=== PATIENT | male | born 1935 ===

== ENCOUNTER → 2016-08-27 | Outpatient (CLI) | payer MEDICARE, OTHER ==
[~2016-08-27] MED LIST: ACCUPRIL PO; ACCUPRIL10 MG PO; ALDACTONE25 MG PO; ALPRAZOLAM PO; ASPIRIN PO; ASPIRIN81 M2 PO; ASPIRIN81 MG PO; ATENOLOL PO; ATENOLOL25 MG PO; ATIVAN0.5 M1 PO; ATIVAN2 MG PO; CARDURA PO; CENTRUM PO; COREG3.125 MG PO; CRESTOR PO; CRESTOR10 MG PO; ELIQUIS5 MG PO; FLOMAX0.4 M1 PO; FUROSEMIDE80 MG PO; GABAPENTIN300 M2 PO; HYDRALAZINE HCL25 MG PO; HYDROCODON-ACE1 EAC5 PO; IMDUR PO; IMDUR-ER60 M1 PO; K-DUR10 MEQ PO; K-DUR20 ME2 PO; KCL PO; LASIX20 MG PO; LASIX80 MG PO; LIPITOR PO; LORAZEPAM1 MG PO; LORTAB 10-3251 EACH PO; LORTAB 7.5-5001 TAB PO; LYRICA PO; MULTI VITAMIN1 EACH PO; MULTI-DAY1 TAB PO; MULTIVITAMINS1 EAC3 PO; NEURONTIN100 MG PO; NITROGLYGERIN0.4 MG SL; NITROSTAT0.4 MG SL; OMEPRAZOLE40 M1 PO; PERCOCET 7.5-31 EACH PO; PERCOCET 7.5/321 TAB PO; POTASSIUM CHLO10 MEQ PO; PRADAXA150 MG PO; PREDNISONE5 M1 PO; PROTONIX PO; ROXANOL W/DR20 MG/ML PO; ULTRAM ER100 MG PO; ULTRAM PO; ZOLOFT50 MG PO
== END | disposition home or self-care (01) ==
LOC: CLAB 06:18
DX: R19.7 Diarrhea, unspecified (principal)
CPT/HCPCS: 87045; 87427; 87493; 87899

== ENCOUNTER → 2016-11-02 | Day surgery (SDC) | payer MEDICARE, OTHER ==
--- NOTE | ~2016-11-02 | OR ---
Unit #: [id number] #: [id number] Patient: MICHELLE REYNOLDS [id number] [address] [address] [id number] O MR#: [id number] NAME: MICHELLE REYNOLDS ROOM: Date of Procedure: 11/02/2016 Admission Date: 11/02/2016 Surgeon: Vladimir Mcclure M.D. : 1935 Attending Physician: Vladimir Mcclure M.D. Primary Care Physician: Fortunato Gamboa M.D. PROCEDURE OPERATIVE NOTE PREOPERATIVE DIAGNOSES 1. Back pain. 2. Radiculopathy. 3. Herniated nucleus pulposus. 4. Spinal stenosis. POSTOPERATIVE DIAGNOSES 1. Back pain. 2. Radiculopathy. 3. Herniated nucleus pulposus. 4. Spinal stenosis. PROCEDURE PERFORMED Lumbar epidural steroid injection with intravenous sedation and fluoroscopic guidance for needle localization. HISTORY The patient is an 81-year-old male with return of back and right lower extremity pain, right-sided low back greater than left, due to known right-sided disc herniations at L2-3, 3-4, and 4-5, left greater than right bulge at L5-S1. Patient is not a surgical candidate. He has been treated with medications and p.r.n. epidural steroid injections. Last injections were completed about three months ago and he did well until just the last few weeks. Plan is to repeat an injection based on histopathology and symptom complex. PROCEDURE The patient was placed in a seated position. Standard monitors were applied. One milligram of Versed was given for sedation and anxiolysis which were adequate. Vital signs remained stable. A sterile prep and drape down to the lumbar area was performed. The skin at the L4 level was localized with 1% lidocaine. An 18-gauge Travtar needle was then advanced via loss of resistance technique under fluoroscopic guidance in toward the epidural space. After confirming proper positioning with fluoroscopy and radiographic contrast, 80 mg of Depo Medrol and 6 mL of 0.125% bupivacaine were deposited. Patient tolerated the procedure well and was discharged to the recovery room in stable condition. Dictated by... Unit #: [id number] #: [id number] Patient: MICHELLE REYNOLDS Vladimir Mcclure M.D. [facility]/ TD: 11/02/2016 09:24 JOB #: [id number] PROCEDURE OPERATIVE NOTE Page 1 of 1 X Vladimir Mcclure MD X PROCEDURE OPERATIVE NOTE
== END | disposition home or self-care (01) ==
LOC: CCSC 07:40
DX: M51.17 Intervertebral disc disorders with radiculopathy, lumbosacral region (principal); M48.06 Spinal stenosis, lumbar region
CPT/HCPCS: J1040; J2250

== ENCOUNTER 2016-11-06 16:50 | Emergency (ER) | payer MEDICARE, OTHER ==
--- NOTE | ~2016-11-06 | CR210 ---
[facility] A Service of [facility] RADIOLOGY TEXT RESULTS PATIENT: MICHELLE REYNOLDS LOCATION: [facility] : 33 UNIT #: [id number] AGE: [address]: Travis Mcfadden MD SEX: M ORDER DR: [id number] [facility] [address] [place], [place] [address] [id number] E MR#: [id number] Acc #: [id number] NAME: MICHELLE REYNOLDS : 1935 SEX: M STUDY DATE/TIME: 11/06/2016 19:19 UNIT: [facility] ROOM: STUDY DESCRIPTION: CR Ribs Uni 2 View W PA Ch Lt Attending Physician: Travis Mcfadden M.D. Ordering Physician: Travis Mcfadden M.D. Primary Care Physician: Fortunato Gamboa M.D. MEDICAL IMAGING REPORT This report is preliminary unless electronic signature is present EXAM PA chest with left rib series, 11/06/2016 HISTORY 81-year-old male with left-sided rib pain for 1 week status post fall. COMPARISON CT chest 05/19/2016 FINDINGS Frontal chest and 3 views of the left ribs are performed. 4 total images. No displaced left-sided rib fractures. No other acute bony abnormality. Low lung volumes. Bibasilar atelectasis. Small left pleural effusion. No pneumothorax. Mild cardiomegaly. Mediastinum and pulmonary vasculature unremarkable. Median sternotomy wires. IMPRESSION 1. No evidence of a displaced left-sided rib fracture. No other acute bony abnormality. 2. Low lung volumes with bibasilar atelectasis and small left pleural effusion. 3. CABG. Dictated by... Unruly Martínez M.D. THIS IS AN ELECTRONICALLY VERIFIED REPORT Unruly Martínez M.D. at 11/07/2016 9:07 AM JAY/guera TD: 11/06/2016 23:24 [facility] A Service of [facility] RADIOLOGY TEXT RESULTS PATIENT: MICHEL[facility] REYNOLDS [id number] [birth year] UNIT #: [id number] AGE: [address]: Travis Mcfadden MD SEX: M ORDER DR: JOB #: [id number] MEDICAL IMAGING REPORT Page 1 of 1 COPY
[~2016-11-06 16:50] MED LIST changes: -ATIVAN2 MG PO; -CRESTOR PO; -FUROSEMIDE80 MG PO; -GABAPENTIN300 M2 PO; -KCL PO; -MULTIVITAMINS1 EAC3 PO; -PREDNISONE5 M1 PO; -ROXANOL W/DR20 MG/ML PO
[2016-11-06] MEDS ORDERED: ACCUPRIL10 MG PO (18:15)
[2016-11-06] MEDS ORDERED: COREG3.125 MG PO (18:15)
[2016-11-06] MEDS ORDERED: ELIQUIS5 MG PO (18:15)
[2016-11-06] MEDS ORDERED: FUROSEMIDE80 MG PO (18:15)
[2016-11-06] MEDS ORDERED: CRESTOR PO (18:15)
[2016-11-06] MEDS ORDERED: GABAPENTIN300 M2 PO (18:16)
[2016-11-06] MEDS ORDERED: MULTIVITAMINS1 EAC3 PO (18:17)
[2016-11-06] MEDS ORDERED: LORTAB 10-3251 EACH PO (18:17)
[2016-11-06] MEDS ORDERED: KCL PO (18:18)
[2016-11-06] MEDS ORDERED: FLOMAX0.4 M1 PO (18:19)
[2016-11-06] MEDS ORDERED: ZOLOFT50 MG PO (18:19)
[2016-11-06] MEDS ORDERED: PREDNISONE5 M1 PO (18:20)
[2016-11-06] MEDS ORDERED: NITROGLYGERIN0.4 MG SL (18:20)
== END 2016-11-06 20:07 | disposition home or self-care (01) ==
LOC: CED 16:50
DX: S20.212A Contusion of left front wall of thorax, initial encounter (principal); I11.0 Hypertensive heart disease with heart failure; I50.9 Heart failure, unspecified; Y92.89 Other specified places as the place of occurrence of the external cause; F32.9 Major depressive disorder, single episode, unspecified; E78.00 Pure hypercholesterolemia, unspecified; Z79.899 Other long term (current) drug therapy; W01.0XXA Fall on same level from slipping, tripping and stumbling without subsequent striking against object, initial encounter
CPT/HCPCS: 71101; 99283

== ENCOUNTER → 2016-11-09 | Day surgery (SDC) | payer MEDICARE, OTHER ==
[~2016-11-09] MED LIST changes: +ATIVAN2 MG PO; +CRESTOR PO; +FUROSEMIDE80 MG PO; +GABAPENTIN300 M2 PO; +KCL PO; +MULTIVITAMINS1 EAC3 PO; +PREDNISONE5 M1 PO; +ROXANOL W/DR20 MG/ML PO
--- NOTE | ~2016-11-09 | OR ---
Unit #: [id number] #: [id number] Patient: MICHELLE REYNOLDS [id number] [address] [place], [place] [address] [id number] O MR#: [id number] NAME: MICHELLE REYNOLDS ROOM: Date of Procedure: 11/09/2016 Admission Date: 11/09/2016 Surgeon: Vladimir Mcclure M.D. : 1935 Attending Physician: Vladimir Mcclure M.D. Primary Care Physician: Fortunato Gamboa M.D. OPERATIVE REPORT PREOPERATIVE DIAGNOSES Back pain, radiculopathy, lumbar disk herniation, degenerative disc and spine disease. POSTOPERATIVE DIAGNOSES Back pain, radiculopathy, lumbar disk herniation, degenerative disc and spine disease. PROCEDURE PERFORMED Lumbar epidural steroid injection with intravenous sedation and fluoroscopic guidance for needle localization. INDICATIONS FOR PROCEDURE The patient is an 81-year-old male with worsening back and right lower extremity pain due to right-sided L2-3 and L3-4 disc herniations. There were degenerative changes also at L4-L5 and L5-S1 levels. He is not a surgical candidate. He was treated medically with p.r.n. epidural steroid injections when his symptoms flare. He had injection in last week, which settle his about half his right low back and lower extremity pain. He is not yet at the baseline, so we are able to get with injections. He also had a fall during the week, he hit the side of the tub with the left side of his chest. He went to the ER for workup, but no fracture, he was just sore to the left side of his thorax. DESCRIPTION OF PROCEDURE The patient was placed in a seated position. Standard monitors were applied. 1 mg of Versed was given for sedation and anxiolysis, which were adequate. Vital signs remained stable. Sterile prep and drape then of the lumbar area was performed. The skin at the L3-L4 level was localized with 1% lidocaine. An 18-gauge BuyerMLStead needle was then advanced via loss of resistance technique and fluoroscopic guidance into the epidural space. After confirming proper positioning with fluoroscopy and radiographic contrast, 80 mg Depo-Medrol and 6 mL of 0.125% bupivacaine were deposited. The patient tolerated the procedure well and was discharged to the recovery room in stable condition. Dictated by... Vladimir Mcclure M.D. [facility]/adeola Unit #: [id number] #: [id number] Patient: MICHELLE REYNOLDS TD: 11/09/2016 10:49 JOB #: [id number] OPERATIVE REPORT Page 1 of 1 X Vladimir Mcclure MD X PROCEDURE OPERATIVE NOTE
== END | disposition home or self-care (01) ==
LOC: CCSC 07:35
DX: M51.16 Intervertebral disc disorders with radiculopathy, lumbar region (principal); M51.17 Intervertebral disc disorders with radiculopathy, lumbosacral region
CPT/HCPCS: J1040; J2250

== ENCOUNTER → 2016-11-29 | Outpatient (CLI) | payer MEDICARE, OTHER ==
[2016-11-29 17:01] LABS: BUN/CREATININE RATIO 26.25; CALCIUM SERUM 8.6 mg/dL (8.4-10.2); CREATININE SERUM 0.8 mg/dL (0.6-1.4); GLOM FILT RATE Estimated 82.6 mL/min (>60); POTASSIUM 3.9 mmol/L (3.5-5.1)
== END | disposition home or self-care (01) ==
LOC: CLAB 15:18
PROVIDERS: Internal Medicine Cardiovascular Disease
DX: I50.9 Heart failure, unspecified (principal)
CPT/HCPCS: 36415; 80048

== ENCOUNTER → 2016-12-07 | Outpatient (CLI) | payer MEDICARE, OTHER ==
--- NOTE | ~2016-12-07 | CT55 ---
[facility] A Service of [facility] RADIOLOGY TEXT RESULTS PATIENT: MICHELLE REYNOLDS LOCATION: [facility] : 33 UNIT #: [id number] AGE: [address]: Fortunato Gamboa MD SEX: M ORDER DR: [id number] [facility] [address] [place], [place] [address] [id number] O MR#: [id number] Acc #: [id number] NAME: MICHELLE REYNOLDS : 1935 SEX: M STUDY DATE/TIME: 12/07/2016 15:57 UNIT: [facility] ROOM: STUDY DESCRIPTION: CT Chest W Con Attending Physician: Fortunato Gamboa M.D. Referring Physician: Fortunato Gamboa M.D. Ordering Physician: Fortunato Gamboa M.D. Primary Care Physician: Fortunato Gamboa M.D. MEDICAL IMAGING REPORT This report is preliminary unless electronic signature is present EXAM CT chest. INDICATIONS Abnormal chest CT. Shortness of air for 6 months. Asbestos exposure. TECHNIQUE CT of the thorax with IV contrast (100 mL Isovue-370 IV contrast). Coronal and sagittal reconstructions were obtained. This CT exam was performed with one or more of the following radiation dose reduction techniques: automatic exposure control, adjustment of mA and/or kV according to patient size, and iterative reconstruction. COMPARISON CT chest dated 05/19/2016, and concurrent CT abdomen and pelvis 12/07/2016. FINDINGS The heart is enlarged. Patient is status post CABG. There is borderline enlargement of the mid ascending thoracic aorta measuring 3.9 cm. No pathologically enlarged mediastinal or hilar lymph nodes. 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 There is mild emphysema. No focal consolidation. There is elevation of the right hemidiaphragm which results in some atelectasis in the right lung. Please refer to separately dictated report for details on the abdomen. No acute osseous abnormalities. There is asymmetric gynecomastia in the left chest. There is an acute T6 compression fracture resulting in 50% anterior height loss and 25% posterior height loss. No retropulsion. There is a subacute STS. [facility] A Service of [facility] RADIOLOGY TEXT RESULTS PATIENT: MICHELLE REYNOLDS LOCATION: [facility] : 33 UNIT #: [id number] AGE: [address]: Fortunato Gamboa MD SEX: M ORDER DR: to chronic compression fracture of the T12 vertebra resulting in 50% anterior height loss. IMPRESSION 1. Emphysema. 2. 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 3. Elevated right hemidiaphragm. 4. Acute-appearing compression fracture of T6 with subacute to chronic compression fracture of T12. Dictated by... Mohsen Flores M.D. THIS IS AN ELECTRONICALLY VERIFIED REPORT Mohsen Flores M.D. at 12/08/2016 7:57 AM MAC/brittany TD: 12/07/2016 22:18 JOB #: [id number] MEDICAL IMAGING REPORT Page 1 of 1 COPY
--- NOTE | ~2016-12-07 | CT2 ---
[facility] A Service of [facility] RADIOLOGY TEXT RESULTS PATIENT: MICHELLE REYNOLDS LOCATION: [facility] : 33 UNIT #: [id number] AGE: [address]: Fortunato Gamboa MD SEX: M ORDER DR: [id number] [facility] [address] [place], [place] [address] [id number] O MR#: [id number] Acc #: [id number] NAME: MICHELLE REYNOLDS : 1935 SEX: M STUDY DATE/TIME: 12/07/2016 15:57 UNIT: [facility] ROOM: STUDY DESCRIPTION: CT Abd and Pelv W Cont Attending Physician: Fortunato Gamboa M.D. Referring Physician: Fortunato Gamboa M.D. Ordering Physician: Fortunato Gamboa M.D. Primary Care Physician: Fortunato Gamboa M.D. MEDICAL IMAGING REPORT This report is preliminary unless electronic signature is present EXAM CT abdomen and pelvis INDICATION Right lateral abdominal pain. Abnormal chest CT. Shortness of air for [address] abdomen and pelvis with p.o. and IV contrast. Coronal and sagittal reconstructions were obtained. This CT exam was performed with one or more of the following radiation dose reduction techniques: automatic exposure control, adjustment of mA and/or kV according to patient size, and iterative reconstruction. COMPARISON CT chest dated 12/07/[address] abdomen 06/25/2015. FINDINGS ABDOMEN: There is no focal abnormalities in the liver, pancreas, spleen, adrenal glands, and kidneys. The bowel is not dilated. Gallbladder is surgically absent. The abdominal aorta is tortuous, however, is not aneurysmal. There are some colonic diverticula, however no diverticulitis. PELVIS: The appendix is normal. Bladder is unremarkable. Patient has had prior right inguinal hernia repair. There is a low-attenuation fluid collection along the right pelvic sidewall measuring up to 3.3 cm. This is unchanged from the prior study. No acute osseous abnormalities. There is a T12 compression fracture that has developed since the prior study. This results in 50% anterior height STS. [facility] A Service of [facility] RADIOLOGY TEXT RESULTS PATIENT: MICHELLE REYNOLDS LOCATION: [facility] : 33 UNIT #: [id number] AGE: [address]: Fortunato Gamboa MD SEX: M ORDER DR: dainel. No retropulsion. IMPRESSION 1. No acute findings in the abdomen or pelvis. 2. Small fluid collection along the right pelvic sidewall is unchanged from the prior study. 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 No aggressive malignant features. 3. Diverticulosis without diverticulitis. 4. Development of a anterior compression fracture of T12. This is new from the 06/25/2015 exam, appears to be subacute to chronic in time frame. No retropulsion. Dictated by... Mohsen Flores M.D. THIS IS AN ELECTRONICALLY VERIFIED REPORT Mohsen Flores M.D. at 12/08/2016 3:07 PM Davide TD: 12/08/2016 11:37 JOB #: [id number] MEDICAL IMAGING REPORT Page 1 of 1 COPY
[2016-12-07 15:25] LABS: POC - CREATININE 0.73 mg/dL (0.64-1.27); POC - GFR >60.0 mL/min (>60)
== END | disposition home or self-care (01) ==
LOC: CCAT 14:01
PROVIDERS: Internal Medicine
DX: Z51.81 Encounter for therapeutic drug level monitoring (principal); R10.9 Unspecified abdominal pain; F33.41 Major depressive disorder, recurrent, in partial remission; R93.8 Abnormal findings on diagnostic imaging of other specified body structures; R06.02 Shortness of breath; J43.9 Emphysema, unspecified; J92.0 Pleural plaque with presence of asbestos; J98.6 Disorders of diaphragm; M48.54XA Collapsed vertebra, not elsewhere classified, thoracic region, initial encounter for fracture; K57.90 Diverticulosis of intestine, part unspecified, without perforation or abscess without bleeding; Z79.899 Other long term (current) drug therapy
CPT/HCPCS: 71260; 74177; 82565; Q9967

== ENCOUNTER → 2016-12-14 | Outpatient (CLI) | payer MEDICARE, OTHER ==
--- NOTE | ~2016-12-14 | MR175 ---
[facility] A Service of [facility] RADIOLOGY TEXT RESULTS PATIENT: MICHELLE REYNOLDS LOCATION: [facility] : 33 UNIT #: [id number] AGE: [address]: Fortunato Gamboa MD SEX: M ORDER DR: [id number] [facility] [address] [place], [place] [address] [id number] O MR#: [id number] Acc #: [id number] NAME: MICHELLE REYNOLDS : 1935 SEX: M STUDY DATE/TIME: 12/14/2016 15:35 UNIT: [facility] ROOM: STUDY DESCRIPTION: MR Thoracic WWo Contrast Attending Physician: Fortunato Gamboa M.D. Referring Physician: Fortunato Gamboa M.D. Ordering Physician: Fortunato Gamboa M.D. Primary Care Physician: Fortunato Gamboa M.D. MRI CENTER REPORT This report is preliminary unless electronic signature is present. EXAM Thoracic spine MRI with and without contrast. DATE OF STUDY 12/14/[address] dated 05/19/2016. CLINICAL HISTORY Several year history of right anterior rib pain now with mid back pain and bilateral leg numbness and burning/tingling paresthesias. About 5 weeks status post fall with new onset pain. FINDINGS New since the CT of 05/19/2016 is a T12 compression fracture with about 40% height loss. There is some persistent marrow edema but the finding appears likely subacute to early chronic. However, at T6, there is also a compression fracture relatively acute appearing with about 60% height loss. There is no other abnormal marrow signal. Cord signal appears normal. Postcontrast images show no abnormal intrathecal enhancement. At the level of the T6 fracture, there is effective mild canal stenosis due to slight central cortical retropulsion, and at T12 there is no canal stenosis. IMPRESSION Subacute to more likely early chronic T12 compression fracture with about 30% height loss, and an acute to subacute fracture at T6 with about 60% height loss and mild secondary canal stenosis. However, there is no cord compression or abnormal cord signal. 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 No other areas of abnormal cord signal are seen. [facility] A Service of [facility] RADIOLOGY TEXT RESULTS PATIENT: MICHELLE REYNOLDS LOCATION: [facility] : 33 UNIT #: [id number] AGE: [address]: Fortunato Gamboa MD SEX: M ORDER DR: Dictated by... Caleb Brar M.D. THIS IS AN ELECTRONICALLY VERIFIED REPORT Caleb Brar M.D. at 12/27/2016 10:40 AM TEV/bd TD: 12/20/2016 13:19 JOB #: [id number] MRI CENTER REPORT Page 1 of 1 COPY
== END | disposition home or self-care (01) ==
LOC: CMRI 14:25
DX: S22.9XXA Fracture of bony thorax, part unspecified, initial encounter for closed fracture (principal); M48.04 Spinal stenosis, thoracic region
CPT/HCPCS: 72157; A9577

== ENCOUNTER 2016-12-24 15:46 | Inpatient (IN) | payer MEDICARE, OTHER ==
--- NOTE | ~2016-12-24 | CO ---
Unit #: [id number] #: [id number] Patient: MICHELLE IRVING [id number] [facility] [address] [place], [place] [address] [id number] I MR#: [id number] NAME: MICHELLE IRVING ROOM: [facility] Age: 81 Sex: M Admission Date: 12/24/2016 : 1935 Attending Physician: Charlie Davis M.D. Primary Care Physician: Fortunato Gamboa M.D. CONSULTATION REPORT We were asked to see him by Dr. Nayak for respiratory failure. HISTORY OF PRESENT ILLNESS Mr. Irving is an 85-year-old male with a history of known asbestosis with pleural plaquing and some left pleural thickening, who presented to the hospital with some mental status changes and some desaturation. He apparently was doing fine, but on Sunday, which was 3 days ago, he had chest pain, which was almost epigastric in nature. EMS was called and he went to [facility], but was released. I am not sure they really knew what the conclusion was, but the conclusion was that he did not have coronary artery based chest pain. He then was noted to be shaking yesterday and cold, which I presume is shaking chills. He really was not coughing all that much. The family did note that oxygen level was down in the upper 70s. He therefore was brought to the hospital. Surprisingly, he is really not coughing all that much. He has been complaining of chest pain. He was complaining of chest pain days ago, but not necessarily today. It is notable that the family is also saying that just a little over time it seems like when he gets, he is more prone to desaturation and he had been increased to 3 L of nasal cannula. He never smoked. He apparently was diagnosed with asbestosis at some point. It is notable that he was exposed to asbestos about 1954. PAST MEDICAL HISTORY Significant for asbestosis as mentioned. There was a mention when he came to our office of nonactive mesothelioma, but I am really not sure how that diagnosis could have been made without a surgical procedure. History of coronary artery disease, history of congestive heart failure and an echo was done on 04/11/2016 with globally normal left ventricular systolic function, but pseudonormalization, grade 2 diastolic dysfunction. His left atrium was mildly dilated, right atrium normal, right ventricle normal, mild tricuspid regurgitation, but I cannot find RVSP. Other past history also significant for chronic back pain, BPH, atrial fibrillation, on Eliquis, compression fractures, peripheral arterial disease. PAST SURGICAL HISTORY Include cholecystectomy, coronary artery bypass grafting in 1994, umbilical hernia repair. MEDICATIONS On admission had included Coreg 3.125 mg p.o. b.i.d., Accupril 10 mg p.o. daily, Crestor 10 mg p.o. daily, Eliquis 5 mg p.o. b.i.d., Lasix 80 mg p.o. b.i.d., gabapentin 300 mg p.o. t.i.d., Lortab 10/325 q.4h p.r.n., multivitamins daily, potassium chloride 40 mEq p.o. b.i.d., Flomax 0.8 mg at bedtime, Zoloft 50 mg p.o. at bedtime, prednisone 5 mg p.o. daily, Unit #: [id number] #: [id number] Patient: RODOLFO,MICHELLE nitroglycerin 0.4 sublingual daily. ALLERGIES Amlodipine, atorvastatin, duloxetine, oxycodone, topiramate, celecoxib, pregabalin. SOCIAL HISTORY He never smoked. As mentioned, he was exposed to asbestos many years ago. FAMILY HISTORY Significant for heart disease in his father. REVIEW OF SYSTEMS Difficult. No nausea, vomiting, diarrhea. Did have some confusion and leg swelling. All other systems are negative except as mentioned. PHYSICAL EXAMINATION GENERAL: He presents as an older male, in no acute distress. VITAL SIGNS: Temperature was 102.6, pulse 101, respirations 26, blood pressure 110/60, saturation 96% on 43% precision flow. NECK: Without adenopathy. Evaluation of lungs shows his breathing is not labored, but decreased at the bases bilaterally. Otherwise fairly clear. HEART: Irregular. ABDOMEN: Soft and bowel sounds are present. EXTREMITIES: Trace edema. NEUROLOGIC: He is arousable and will speak, although not that clearly. DIAGNOSTIC STUDIES IMAGING STUDIES: His CT of the chest was reviewed by me. I thought he had left pleural thickening, which is probably about the same as it has been, maybe mildly worsened a year ago. Some of this tracks along the minor fissure. He has a right lower lobe infiltrate versus atelectasis and I favor infiltrate under these circumstances. He has increased markings in the lingula, which could be an atypical infiltrate and he has some increased markings/consolidation in the left lower lobe, which could be infiltrate or atelectasis. LABORATORY RESULTS: Blood gas was done on 40%; pH 7.33, pCO2 of 65, pO2 of 96. Serum chemistries from today; BUN 17, creatinine 0.9, bicarb 33. He had troponin 0.85, BNP 114, lactic acid was 2.9, repeat 0.9, procalcitonin was 21. White blood cell count was 11.5, H and H 11.6 and 35.6, platelets 108,000. His cultures are sent, but nothing is growing yet from the blood. IMPRESSION 1. Right lower lobe pneumonia. 2. Acute on chronic hypoxemic and hypercapnic respiratory failure. 3. Sepsis. 4. Asbestosis. 5. Possible evolving myocardial infarction. PLAN He was started on Zithromax and Rocephin. Just because of a concern for sepsis, I would like to switch to cefepime. We will see if we can get sputum, but this will probably be difficult. He is presently on 43% precision flow, which is high-flow, high humidified heated oxygen. I think this is working for him okay and the family does not want him resuscitated or intubated any way. When nursing staff is comfortable, I am okay with him moving to the floor. Unit #: [id number] #: [id number] Patient: MICHELLE IRVING Thank you for allowing me to participate in care of this patient. Dictated by... Roscoe Suazo/adeola TD: 12/26/2016 06:26 JOB #: [id number] CC: Arianna Nayak M.D. CONSULTATION REPORT Page 1 of 1 X Jeff Vela MD CONSULTATION REPORT
--- NOTE | ~2016-12-24 | CT71 ---
[facility] A Service of [facility] RADIOLOGY TEXT RESULTS PATIENT: MICHELLE REYNOLDS LOCATION: [facility] [id number] : [birth year] UNIT #: [id number] AGE: [address]: Charlie Davis MD SEX: M ORDER DR: [id number] [facility] [address] [place] [address] [place], [place] [address] [id number] I MR#: [id number] Acc #: [id number] NAME: MICHELLE REYNOLDS : 1935 SEX: M STUDY DATE/TIME: 12/28/2016 21:24 UNIT: [facility] ROOM: [facility] STUDY DESCRIPTION: CT Head Wo Contrast Attending Physician: Charlie Davis M.D. Ordering Physician: Suri Galvan M.D. Primary Care Physician: Fortunato Gamboa M.D. MEDICAL IMAGING REPORT This report is preliminary unless electronic signature is present EXAM Head CT without contrast, 12/28/2016 HISTORY Headache beginning today with acute onset of confusion and agitation. This CT exam was performed with one or more of the following radiation dose reduction techniques: automatic exposure control, adjustment of mA and/or kV according to patient size, and iterative reconstruction. FINDINGS Multiple axial images were obtained from the skull base to vertex without intravenous contrast administration. Exam is extremely limited due to patient motion with resulting artifact. There is generalized atrophy and periventricular microvascular white matter ischemic change. Old right frontal lobe infarct is noted. There is no midline shift. No mass or mass effect, hemorrhage or acute infarct. IMPRESSION Exam is extremely limited by patient motion with resulting artifact. No definite acute intracranial abnormality on this extremely limited exam. Dictated by... Jose Ellis M.D. THIS IS AN ELECTRONICALLY VERIFIED REPORT Jose Ellis M.D. at 12/29/2016 7:22 AM ARCHANA/guera TD: 12/29/2016 04:12 [facility] A Service of [facility] RADIOLOGY TEXT RESULTS PATIENT: MICHELLE REYNOLDS LOCATION: [facility] 548-01 : 31 UNIT #: [id number] AGE: [address]: Charlie Davis MD SEX: M ORDER DR: JOB #: [id number] MEDICAL IMAGING REPORT Page 1 of 1 COPY
--- NOTE | ~2016-12-24 | CT57 ---
[facility] A Service of [facility] & [facility] RADIOLOGY TEXT RESULTS PATIENT: MICHELLE REYNOLDS LOCATION: [address] : 33 UNIT #: [id number] AGE: [address]: Charlie Davis MD SEX: M ORDER DR: [id number] [facility] [address] [facility]. [place], [place] [address] [id number] I MR#: [id number] Acc #: [id number] NAME: MICHELLE REYNOLDS : 1935 SEX: M STUDY DATE/TIME: 12/24/2016 19:52 [place]: [facility] [place] ROOM: [facility] [place] STUDY DESCRIPTION: CT Chest Wo Cont Attending Physician: Charlie Davis M.D. Ordering Physician: Arianna Nayak M.D. Primary Care Physician: Fortunato Gamboa M.D. MEDICAL IMAGING REPORT This report is preliminary unless electronic signature is present EXAM CT chest without contrast. HISTORY Shortness of air for 3 days and respiratory failure. TECHNIQUE This CT exam was performed with one or more of the following radiation dose reduction techniques: Automatic exposure control, adjustment of mA and/or kV according to patient size, and iterative reconstruction. FINDINGS CT chest without contrast demonstrates moderate atelectasis in the posterior lower lobes bilaterally and additional mild atelectasis in the inferior right middle lobe and inferior lingula. Very small calcified right hilar nodes. Dilatation of the ascending thoracic aorta measuring 4.4 cm in the mid ascending aorta, and dilatation of the aorta at the junction of the ascending aorta and proximal aortic arch measuring 4.4 cm. Multifocal dtbq-dv-guutgfdu calcified pleural plaques over the anterior and posterior upper and lower lungs bilaterally. Moderate elevation of the right hemidiaphragm. No adenopathy. No airspace infiltrates in the remainder of the lungs. Cholecystectomy. Chronic compression fractures of T6 and T12 vertebral bodies. IMPRESSION 1. Moderate atelectasis in the posterior and inferior lower lobes bilaterally and additional mild atelectasis in the inferior right middle lobe and lingula. 2. No adenopathy. 3. Mild dilatation of the ascending thoracic aorta extending to its junction with the aortic arch measuring 4.4 cm in diameter. 4. Fuso-wn-adodtane elevation of the right hemidiaphragm. 5. Incidental calcified pleural plaques over the anterior and posterior STS. [facility] A Service of [facility] & [facility] RADIOLOGY TEXT RESULTS PATIENT: MICHELLE REYNOLDS LOCATION: [address] : [birth year] UNIT #: [id number] AGE: [address]: Charlie Davis MD SEX: M ORDER DR: upper and lower lungs bilaterally. 6. Chronic compression fractures of T6 and T12 vertebral bodies. Dictated by... Yovani Holland M.D. THIS IS AN ELECTRONICALLY VERIFIED REPORT Yovani Holland M.D. at 12/25/2016 3:51 PM MICHAEL/justyna TD: 12/25/2016 11:30 JOB #: [id number] MEDICAL IMAGING REPORT Page 1 of 1 COPY
--- NOTE | ~2016-12-24 | CR72 ---
[facility] A Service of [facility] RADIOLOGY TEXT RESULTS PATIENT: MICHELLE REYNOLDS LOCATION: [address] : [birth year] UNIT #: [id number] AGE: [address]: Charlie Davis MD SEX: M ORDER DR: [id number] [facility] [address] [facility]. [place], [place] [address] [id number] I MR#: [id number] Acc #: [id number] NAME: MICHELLE REYNOLDS : 1935 SEX: M STUDY DATE/TIME: 12/24/2016 16:42 UNIT: CIC3 ROOM: [facility] STUDY DESCRIPTION: CR Chest Single View Portable Attending Physician: Charlie Davis M.D. Ordering Physician: Clarence Aguirre M.D. Primary Care Physician: Fortunato Gamboa M.D. MEDICAL IMAGING REPORT This report is preliminary unless electronic signature is present EXAM CHEST x-ray: 12/24/2016 HISTORY 81-year-old male in the ED complaining of shortness of air, cough and congestion beginning earlier today. TECHNIQUE AP portable chest x-ray. COMPARISON CT chest 12/07/2016. Chest x-rays 12/23/2016 and 11/06/2016. FINDINGS Multifocal calcified pleural plaques surrounding both lungs, typical for significant prior asbestos exposure. Chronic fibrotic scarring and pleural thickening in both lung bases. Chronically low lung volumes with chronic elevation right hemidiaphragm. These findings are unchanged since 11/06/2016 and were best demonstrated on CT chest 12/07/2016. There is no airspace consolidation or visible pleural effusion. Postop changes CABG surgery. IMPRESSION 1. No active disease. 2. Chronic pulmonary and pleural changes as noted above, likely associated with significant prior asbestos exposure. 3. CABG. Stable mild cardiomegaly. Dictated by... Luis Barton M.D. [facility] A Service of [facility] RADIOLOGY TEXT RESULTS PATIENT: MICHELLE REYNOLDS [facility] : 33 UNIT #: [id number] AGE: [address]: Charlie Davis MD SEX: M ORDER DR: THIS IS AN ELECTRONICALLY VERIFIED REPORT Luis Barton M.D. at 12/26/2016 8:50 AM DEREK/silva TD: 12/25/2016 10:21 JOB #: [id number] MEDICAL IMAGING REPORT Page 1 of 1 COPY
--- NOTE | ~2016-12-24 | US84 ---
[id number] [facility] [address] [place], [place] [address] [id number] I MR#: [id number] Acc #: [id number] NAME: MICHELLE REYNOLDS : 1935 SEX: M STUDY DATE/TIME: 12/25/2016 16:09 UNIT: [facility] ROOM: [facility] STUDY DESCRIPTION: US LE Veins Complete Dariel Stdy Attending Physician: Charlie Davis M.D. Ordering Physician: Jeff Vela M.D. Primary Care Physician: Fortunato Gamboa M.D. MEDICAL IMAGING REPORT This report is preliminary unless electronic signature is present Bilateral lower extremity venous duplex 12/25/16 HISTORY Bilateral lower extremity pain for 1 day. Evaluate for deep vein thrombosis. TECHNIQUE Venous ultrasound examination of both lower extremities was performed using grayscale, spectral Doppler and color flow Doppler imaging. FINDINGS The examination is negative. There is no evidence of deep venous thrombus from the groin to the lower calf bilaterally. Visualized greater saphenous veins are also patent. IMPRESSION Negative examination. No evidence of lower extremity deep venous thrombosis. Dictated by... Jose Ellis M.D. THIS IS AN ELECTRONICALLY VERIFIED REPORT Jose Ellis M.D. at 12/26/2016 2:11 PM ARCHANA/silva TD: 12/26/2016 09:19 JOB #: [id number] MEDICAL IMAGING REPORT Page 1 of 1 COPY
--- NOTE | ~2016-12-24 | EKG ---
PATIENT: MICHELLE REYNOLDS UNIT #: [id number] Ventricular Rate: 91 BPM Atrial Rate: 241 BPM QRS Duration: 80 ms Q-T Interval: 358 ms QTC Calculation(Bezet): 440 ms Calculated R Atwood: 67 degrees Calculated T Atwood: 120 degrees Diagnosis Line: Atrial fibrillation Diagnosis Line: Nonspecific ST and T wave abnormality , probably Diagnosis Line: digitalis effect Diagnosis Line: Abnormal ECG Diagnosis Line: When compared with ECG of 24-DEC-2016 16:26, Diagnosis Line: (unconfirmed) Diagnosis Line: ST no longer depressed in Inferior leads Diagnosis Line: Nonspecific T wave abnormality now evident in Diagnosis Line: Lateral leads Diagnosis Line: Confirmed by HERIBERTO ENGEL, JAYLA ([id number]) on Diagnosis Line: 12/26/2016 4:20:38 PM INTERPRETING MD: FABIO
--- NOTE | ~2016-12-24 | DS ---
Unit #: [id number] #: [id number] Patient: MICHELLE REYNOLDS [id number] [address] [address] [id number] I MR#: [id number] NAME: MICHELLE REYNOLDS ROOM: 548 Age: 81 Sex: M Admission Date: 12/24/2016 : 1935 Discharge Date: 12/29/2016 Attending Physician: Charlie Davis M.D. Primary Care Physician: Fortunato Gamboa M.D. DISCHARGE SUMMARY PRIMARY DIAGNOSIS Acute on chronic hypoxemic respiratory failure. SECONDARY DIAGNOSES 1. Chronic hypercapnic respiratory failure. 2. Chronic spinal and abdominal pain related to osteoporosis and spine fractures. 3. Septic shock. 4. Pseudomonas sepsis. 5. Pneumonia. 6. Elevated D-dimer. 7. Elevated troponin/non-ST segment elevation myocardial infarction. 8. Atrial fibrillation. 9. End stage chronic obstructive pulmonary disease. 10. Advanced age. HOSPITAL COURSE The patient was admitted to the hospital with altered mental status, pneumonia and respiratory failure, was treated with broad spectrum antibiotics including cefepime. Ultimately, one of his blood cultures did come back with Pseudomonas. He had also been having chronic abdominal pain for which he had received CAT scans, in I believe July and November, without significant changes at that time. He was too debilitated and unstable to undergo CT scanning during his hospitalization here and family did not want to proceed with the scanning of the abdomen nor would they want to put him through surgery if something was found that required surgical intervention on his abdomen. The patient has been in severe pain every day for the last 18 months and has had increasing physical disability and family wanted to consider hospice care. Hospice was consulted and, in consultation with the family, decision was made to change the patient to comfort care and discharge home with hospice on 12/29/2016. This decision was made primarily based on the patient's end stage COPD and his chronic pain and debility in coordination with his advanced age. The acute issues were only secondary in the decision making process. DISCHARGE DISPOSITION To home with hospice. DISCHARGE STATUS Terminal. DISCHARGE ACTIVITY Bed rest. Unit #: [id number] #: [id number] Patient: MICHELLE REYNOLDS DISCHARGE DIET As tolerated, unrestricted. DISCHARGE FOLLOWUP Discharge followup will be at the hospice nurses and physicians. DISCHARGE MEDICATIONS 1. Zoloft 50 mg p.o. q. h.s. 2. Roxanol 20 mg p.o. q.1 hour p.r.n. pain. 3. Ativan Intensol 2 mg p.o. q.30 minutes p.r.n. anxiety. Dictated by... Charlie Davis M.D. GHULAM/francis TD: 01/02/2017 06:46 JOB #: [id number] DISCHARGE SUMMARY Page 1 of 1 X Charlie Davis MD X DISCHARGE SUMMARY
--- NOTE | ~2016-12-24 | EKG ---
PATIENT: MICHELLE REYNOLDS UNIT #: [id number] Ventricular Rate: 82 BPM Atrial Rate: 79 BPM QRS Duration: 94 ms Q-T Interval: 378 ms QTC Calculation(Bezet): 441 ms Calculated R Flora: 41 degrees Calculated T Flora: -10 degrees Diagnosis Line: Atrial fibrillation with premature ventricular or Diagnosis Line: aberrantly conducted complexes Diagnosis Line: Nonspecific ST and T wave abnormality , probably Diagnosis Line: digitalis effect Diagnosis Line: Abnormal ECG Diagnosis Line: When compared with ECG of 25-DEC-2016 06:10, Diagnosis Line: (unconfirmed) Diagnosis Line: ST no longer depressed in Lateral leads Diagnosis Line: Confirmed by KIERRA LING MD ([id number]) on Diagnosis Line: 12/26/2016 11:10:15 AM INTERPRETING MD: ANURADHA ENGEL
--- NOTE | ~2016-12-24 | EKG ---
PATIENT: MICHELLE REYNOLDS UNIT #: [id number] Ventricular Rate: 113 BPM Atrial Rate: 104 BPM QRS Duration: 90 ms Q-T Interval: 308 ms QTC Calculation(Bezet): 422 ms Calculated R Etna: 81 degrees Calculated T Etna: -59 degrees Diagnosis Line: Atrial fibrillation with rapid ventricular Diagnosis Line: response with premature ventricular or aberrantly Diagnosis Line: conducted complexes Diagnosis Line: ST and T wave abnormality, consider inferior Diagnosis Line: ischemia Diagnosis Line: Abnormal ECG Diagnosis Line: Poor data quality Diagnosis Line: Confirmed by JAYLA LOUIS MD ([id number]) on Diagnosis Line: 12/25/2016 5:14:37 PM INTERPRETING MD: FABIO
--- NOTE | ~2016-12-24 | CR72 ---
[facility] A Service of [facility] RADIOLOGY TEXT RESULTS PATIENT: MICHELLE REYNOLDS LOCATION: [address] : 33 UNIT #: [id number] AGE: [address]: Charlie Davis MD SEX: M ORDER DR: [id number] [place], [place] [address] [id number] I MR#: [id number] Acc #: [id number] NAME: MICHELLE REYNOLDS : 1935 SEX: M STUDY DATE/TIME: 12/27/2016 7:48 UNIT: [facility] ROOM: [facility] STUDY DESCRIPTION: CR Chest Single View Portable Attending Physician: Charlie Davis M.D. Ordering Physician: Physician Non-Staff Primary Care Physician: Fortunato Gamboa M.D. MEDICAL IMAGING REPORT This report is preliminary unless electronic signature is present EXAM Portable chest HISTORY Pneumonia, cough and shortness of breath for the past 4 days. COMPARISON 12/24/2016 TECHNIQUE Single AP view chest was obtained. FINDINGS The inspiratory effort is shallower than on the previous examination. The heart and mediastinum are stable. There is increased consolidation and volume loss at the right lung base with elevation of the right diaphragm. Extensive patchy infiltrate in the left isi-mv-shrkk lung field is unchanged. IMPRESSION Increased infiltrate at the right base likely representing atelectasis with volume loss. Extensive infiltrates on the left and in the right midlung field are stable since the previous exam. STAT * RESULT Dictated by... Clarence Peter M.D. THIS IS AN ELECTRONICALLY VERIFIED REPORT Clarence Peter M.D. at 12/27/2016 9:34 AM KELLYF/mercedez [facility] A Service of [facility] RADIOLOGY TEXT RESULTS PATIENT: MICHELLE REYNOLDS LOCATION: [facility] : 33 UNIT #: [id number] AGE: [address]: Charlie Davis MD SEX: M ORDER DR: TD: 12/27/2016 08:02 JOB #: [id number] MEDICAL IMAGING REPORT Page 1 of 1 COPY
--- NOTE | ~2016-12-24 | CT71 ---
[facility] A Service [facility] RADIOLOGY TEXT RESULTS PATIENT: MICHELLE REYNOLDS LOCATION: [place] [address]-36 : 33 UNIT #: [id number] AGE: [address]: Arianna Nayak MD SEX: M ORDER DR: [id number] [id number] [place], [place] [address] [id number] I MR#: [id number] Acc #: [id number] NAME: MICHELLE REYNOLDS : 1935 SEX: M STUDY DATE/TIME: 12/24/2016 19:34 UNIT: [facility] ROOM: [id number] STUDY DESCRIPTION: CT Head Wo Contrast Attending Physician: Arianna Nayak M.D. Ordering Physician: Arianna Nayak M.D. Primary Care Physician: Fortunato Gamboa M.D. MEDICAL IMAGING REPORT This report is preliminary unless electronic signature is present EXAM CT head, noncontrast, 12/24/2016 HISTORY 81-year-old male admitted to the hospital through the ED today with shortness of air, cough, fever and mental status changes. Symptoms for about [address] examination of the head was performed without IV contrast. This CT exam was performed with one or more of the following radiation dose reduction techniques: automatic exposure control, adjustment of mA and/or kV according to patient size, and iterative reconstruction. FINDINGS The patient was reportedly agitated and confused during the examination. The images are markedly degraded by motion artifact, despite efforts of multiple assistance to restrain the patient and repeated imaging. The examination is grossly negative for acute intracranial abnormality. Old right frontal lobe infarct is noted. Mild generalized cerebral atrophy. Diffuse low-attenuation white matter changes are nonspecific but likely related to chronic small vessel disease. No evidence of intracranial hemorrhage, mass, mass effect, acute cerebral edema or hydrocephalus. No visible skull fracture. IMPRESSION 1. Motion-limited study as noted above. 2. No gross evidence of acute intracranial abnormality. 3. Chronic right frontal lobe infarct. [facility] A Service [facility] RADIOLOGY TEXT RESULTS PATIENT: MICHELLE REYNOLDS LOCATION: [place] [address] : 33 UNIT #: [id number] AGE: [address]: Arianna Nayak MD SEX: M ORDER DR: 4. Mild diffuse chronic changes as noted above. STAT * RESULT Dictated by... Luis Barton M.D. THIS IS AN ELECTRONICALLY VERIFIED REPORT Luis Barton M.D. at 12/24/2016 9:32 PM DEREK/guera TD: 12/24/2016 21:24 JOB #: [id number] MEDICAL IMAGING REPORT Page 1 of 1 COPY
--- NOTE | ~2016-12-24 | HP ---
Unit #: [id number] #: [id number] Patient: MICHELLE REYNOLDS [id number] [address] [place], [place] [address] [id number] MR#: [id number] NAME: MICHELLE REYNOLDS ROOM: 16541 Age: 81 Sex: M Admission Date: 12/24/2016 : 1935 Attending Physician: Arianna Nayak M.D. Primary Care Physician: Fortunato Gamboa M.D. HISTORY AND PHYSICAL CHIEF COMPLAINT Short of air, fever, altered mental status. HISTORY OF PRESENT ILLNESS The patient is an 81-year-old male with a past medical history of coronary artery disease, CHF, atrial fibrillation, chronic anticoagulation with Eliquis, hypertension hyperlipidemia, BPH, chronic back pain, compression fractures, and cognitive impairment, who presented to the emergency department for evaluation of the above. History is obtained from chart review and discussion with ER staff, as well as from the patient's daughter who is at bedside. The patient apparently complained of chest pain on December 22, 2016. He was seen at [facility]. A chest x-ray and cardiac enzymes were done, and he was discharged home. Yesterday, he was doing okay. Today, he had increasing shortness of breath and occasionally productive cough. He was somewhat confused. He was brought to the emergency department for further evaluation. The family states that this morning he ate breakfast. He took a nap from 10:00 to 12:00. He had a normal bowel movement. He has been increasingly generally weak. He became confused when they noticed that he had a fever. In the emergency department, temperature was 102.9, pulse 118, and oxygen saturation was 83% on five liters. Chest x-ray shows findings suggestive of asbestos exposure but no acute infiltrate. Clinically, he was thought to have pneumonia and was given Rocephin and azithromycin in the emergency department. He also started vomiting in the emergency department, nonbloody. Laboratory is notable for arterial blood gas showing ph of 7.392, PCO2 of 59.6, and PO2 of 38.9 on five liters. The patient was going to be intubated. However, family stated that the patient is a Do Not Resuscitate, and they declined. They understand that the risks of not intubating include . Lactic acid is 2.9. He received two liters of normal saline in the emergency department, as well as a total of 12 mg of Zofran, 4 of morphine, and 1 g of Versed. He is being admitted to [facility] for evaluation and further treatment. PAST MEDICAL HISTORY 1. Admission to [facility] October 28-2013, for a non-ST elevation myocardial infarction. He underwent cardiac catheterization during that admission that showed severe three-vessel disease and an ejection fraction of 45%. The plan per the operative report was medical management. 2. Coronary artery disease, status post coronary artery bypass grafting, followed by Dr. Ribeiro. Unit #: [id number] #: [id number] Patient: MICHELLE REYNOLDS 3. Congestive heart failure with an ejection fraction of 45% noted on cardiac cath in October 2013. 4. Atrial fibrillation, on chronic anticoagulation with Eliquis. 5. Hypertension. 6. Hyperlipidemia. 7. Chronic back pain secondary to degenerative disc disease with radiculopathy. The patient has seen Dr. Mcclure and received epidurals as recently as November 09, 2016. 8. Recently diagnosed compression fractures involving T12 and T6. He saw someone at the [facility] and no intervention is planned. 9. Benign prostatic hypertrophy. 10. Cognitive impairment. 11. Chronic respiratory failure. The patient has seen Nuvia at Dr. Vela's office in the past. PAST SURGICAL HISTORY 1. Coronary artery bypass grafting. 2. Cardiac catheterization. 3. Cholecystectomy. 4. Right inguinal hernia repair. 5. Umbilical hernia repair. SOCIAL HISTORY The patient lives alone but family checks on him frequently. There is no tobacco or alcohol use. He has a walker. His code status is a Do Not Resuscitate. FAMILY HISTORY Notable for coronary artery disease. ALLERGIES Amlodipine, atorvastatin, duloxetine, oxycodone, ciprofloxacin, Celebrex, topiramate, Lyrica. HOME MEDICATIONS 1. Coreg 3.125 mg twice daily. 2. Accupril 10 mg daily. 3. Crestor 10 mg daily. 4. Eliquis 5 mg twice daily. 5. Furosemide 80 mg twice daily. 6. Gabapentin 300 mg t.i.d. 7. Lortab 10/325 q.4 hours p.r.n. 8. Multivitamin daily. 9. Potassium 40 mEq daily. REVIEW OF SYSTEMS A complete review of systems is unobtainable from the patient but negative except as indicated in the History of Present Illness. PHYSICAL EXAMINATION VITAL SIGNS: Temperature is 102.9, pulse 118, respirations 27, blood pressure 164/137, and oxygen saturation 83% on 5 liters. GENERAL: Patient is a male who is currently sleeping. He was previously lethargic but moving all extremities. HEENT: Head is atraumatic. Mucous membranes are dry. NECK: Supple. Trachea is midline. CARDIOVASCULAR: Irregular. Unit #: [id number] #: [id number] Patient: RODOLFO,MICHELLE LUNGS: Scattered rhonchi. Breathing is mildly labored. ABDOMEN: Soft with bowel sounds present in all four quadrants. EXTREMITIES: Nontender with no pedal edema. NEUROLOGIC: Patient is currently lethargic. He withdraws to painful stimuli. He was initially moving all extremities. He received Versed about 30 minutes prior to my evaluation. PSYCHIATRIC: Unable to assess. SKIN: Skin of examined areas is warm and dry. DIAGNOSTIC STUDIES LABORATORY: Complete blood count is essentially normal. Arterial blood gas shows a pH of 7.392, PCO2 of 59.6, and PO2 of 38.9 on 5 liters. Troponin is less than 0.05. INR is 1.1. Comprehensive metabolic panel notable for chloride of 93, CO2 of 35, and glucose 144. Lactic acid is 2.9. Urinalysis is essentially negative. IMAGING: Chest x-ray shows findings suggestive of asbestos exposure. CARDIOLOGY: EKG shows atrial fibrillation with rapid ventricular response and a rate of 113 beats per minute. ASSESSMENT The patient is an 81-year-old male with: 1. Acute on chronic respiratory failure, hypoxic. The patient is a Do Not Resuscitate and is currently on high-flow oxygen for comfort. 2. Altered mental status. 3. Possible pneumonia clinically. The patient received Rocephin and azithromycin in the emergency department. 4. Severe sepsis with an initial lactic acid of 2.9. The patient received a total of two liters of normal saline in the emergency department. 5. Nausea and vomiting. 6. Coronary artery disease, status post coronary artery bypass grafting, followed by Dr. Ribeiro. 7. Congestive heart failure with an ejection fraction of 45% noted on cardiac catheterization in 2013. 8. Atrial fibrillation. 9. Chronic anticoagulation with Eliquis. 10. Hypertension. 11. Hyperlipidemia. 12. Benign prostatic hypertrophy. 13. Chronic back pain. The patient has seen Dr. Mcclure in the past. 14. Compression fractures of T6 and T12 with no plan for intervention. 15. Cognitive impairment. At baseline, the patient would be oriented to person and place. Family states that he would know the date because he has a calendar and is reminded by family but otherwise may or may not know the date. PLAN 1. Admit to intermediate level. 2. N.p.o. 3. Normal saline at 75 mL/hour. 4. Bedrest. 5. Fall precautions. 6. High-flow oxygen for comfort. 7. Consult Dr. Vela regarding acute on chronic respiratory failure. 8. Neuro checks. 9. CT of the head without contrast for further evaluation of altered Unit #: [id number] #: [id number] Patient: RODOLFO,MICHELLE mental status. 10. CT of the chest without contrast for further evaluation of possible pneumonia. 11. TSH, B12, and folate. 12. Blood cultures x2. 13. Sputum culture and sensitivity. 14. Rocephin and azithromycin for community-acquired pneumonia pending further workup. 15. DuoNeb q.4 hours. 16. Sepsis protocol with repeat lactic acid. 17. P.r.n. Zofran. 18. Serial cardiac enzymes. 19. Repeat labs in the morning. 20. SCDs for DVT prophylaxis. 21. Regarding the code status, the patient is a Do Not Resuscitate. 1. Dictated by Roscoe Ortiz/mariela TD: 12/24/2016 21:05 JOB #: [id number] HISTORY AND PHYSICAL Page 1 of 1 X Arianna Nayak MD X HISTORY AND PHYSICAL
--- NOTE | ~2016-12-24 | CO ---
Unit #: [id number] #: [id number] Patient: MICHELLE REYNOLDS [id number] [address] [place], [place] [address] [id number] MR#: [id number] NAME: MICHELLE REYNOLDS ROOM: CIC3 Age: 81 Sex: M Admission Date: 12/24/2016 : 1935 Attending Physician: Charlie Davis M.D. Primary Care Physician: Fortunato Gamboa M.D. Consultation Date: 12/25/2016 CONSULTATION REPORT REASON FOR CONSULTATION Elevated troponin. HISTORY OF PRESENT ILLNESS This is an 81-year-old white male who is typically followed by Dr. Waters. He has a past medical history of known coronary artery disease status post CABG in 1993, congestive heart failure, atrial fibrillation on chronic anticoagulation with Eliquis, hypertension, hyperlipidemia, history of GA, BPH, chronic back pain. The patient is followed closely by his son and daughter who check on him often. He had a cardiac catheterization October 28, [address] Ribeiro that showed severe three-vessel CAD and occluded vein graft to the RCA and occluded vein graft to the marginal branch of the left circumflex, patent vein graft to the second diagonal of the LAD and a patent NAJERA to the distal LAD. Per Dr. Ribeiro's note, he had excellent collateralization of the distal RCA and the second marginal branch of the left circumflex and was treated medically at that time. At that time, his LV EF was 45%. The patient is currently in the ICU, room 18. All the information was gathered from the daughter and son who were at bedside currently as well as review of the chart. According to the daughter, the patient had been complaining of some chest discomfort on Sunday. He was taken to [facility] and evaluated. EKG and serial enzymes were performed which were negative and he was sent home. She states on Sunday, he was doing well with no complaints. On Sunday, the patient began to develop increasing confusion and shortness of breath. Also, some complaints of chest discomfort. Family reports he was weak and had a fever. On arrival to the emergency room, the patient was found to have a temperature of 102.9, pulse 118, in atrial fibrillation with rapid ventricular response. Family also states he had some bouts of nausea and vomiting. He was also found to be hypoxic, was unable to be started on CPAP secondary to vomiting and the patient's family refused intubation. He is currently on high-flow oxygen. He is a DNR. CT scan of the head was performed which shows no gross abnormality. No bleeding, but mild diffuse chronic changes and a chronic right frontal lobe infarct. We were asked to see the patient secondary to elevated troponin. Initial EKG shows atrial fibrillation, rate of 113 beats per minute. Nonspecific ST-T wave abnormality is seen. Initial cardiac troponin was negative. Repeat troponin was 1 and is now trending down with most recent being 0.85. The patient is receiving antibiotic therapy. He was on Levophed which has currently been weaned off. Asbestosis exposure but no acute infiltrate. BNP was noted to be 114. Lactic acid initially was 2.9. At present, he is resting in bed. He does Unit #: [id number] #: [id number] Patient: RODOLFO,MICHELLE not appear to be in any acute distress. His family is at bedside. PAST MEDICAL HISTORY 1. History of non ST GA. 2. Coronary artery disease with history of CABG in 1993. 3. Cardiac catheterization by Dr. Ribeiro on October 28, 2013 showed severe three-vessel coronary artery disease with an occluded vein graft to the RCA and occluded vein graft to the marginal branch of the circumflex. Patent vein graft to the second diagonal of LAD and patent NAJERA to the distal LAD. He had excellent collateralization of the distal RCA in the second marginal branch of the circumflex with an EF of 45%. It was decided to continue medical management. 4. Permanent atrial fibrillation on chronic anticoagulation with Eliquis at home. 5. Hypertension. 6. Hyperlipidemia. 7. Chronic back pain with degenerative disk and radiculopathy as well as a history of compression fractures involving T12 and T6. 8. BPH. 9. Cognitive impairment. 10. Chronic respiratory failure. PAST SURGICAL HISTORY 1. Coronary artery bypass grafting in 1993. 2. Cardiac cath. 3. Cholecystectomy. 4. Right inguinal hernia repair. 5. Umbilical hernia repair. SOCIAL HISTORY The patient lives alone but his daughter and son check on him frequently. Denies illicit drugs or alcohol use. Denies tobacco. He is a do not resuscitate. FAMILY HISTORY Noncontributory secondary to advanced age. ALLERGIES Amlodipine, atorvastatin, duloxetine, oxycodone, ciprofloxacin, Celebrex, Topiramate, Lyrica. HOME MEDICATIONS 1. Coreg 3.125 mg p.o. b.i.d. 2. Accupril 10 mg p.o. daily. 3. Crestor 10 mg p.o. daily. 4. Eliquis 5 mg p.o. b.i.d. 5. Furosemide 80 mg p.o. b.i.d. 6. Gabapentin 300 mg p.o. t.i.d. 7. Lortab 10/325 one tab q.4 hours p.r.n. 8. Multivitamin one tab p.o. daily. 9. Klor-Con 40 mEq p.o. b.i.d. 10. Flomax 0.8 mg p.o. nightly. 11. Zoloft 50 mg p.o. nightly. 12. Prednisone 5 mg p.o. daily. 13. Nitroglycerin 0.4 mg sublingual p.r.n. REVIEW OF SYSTEMS A 12-point review of systems was conducted and is negative except for what Unit #: [id number] #: [id number] Patient: MICHELLE REYNOLDS was stated above in the HPI which is positive for shortness of breath, chest discomfort, weakness, fatigue, chronic back pain. PHYSICAL EXAMINATION VITAL SIGNS: Temperature max is 102.6, respiratory rate 21, pulse 86, blood pressure 117/58 to 93/49. BMI is 24. GENERAL: This is a male who is alert and oriented x2. He is resting in bed, ICU bed 18. Daughter and son are both present at bedside. He is moving all extremities appropriately. HEENT: Head: atraumatic, normocephalic. Mucous membranes are dry. NECK: Trachea is midline. Supple. No lymphadenopathy. No thyromegaly. No JVD. Carotid upstroke normal. CARDIOVASCULAR: S1, S2. Irregularly irregular. No murmur, gallop, or rub. LUNGS: Diminished breath sounds throughout. ABDOMEN: Nontender, nondistended. Bowel sounds are present. EXTREMITIES: Pulses are palpable but weak. Extremities are slightly cool. No clubbing, cyanosis, or edema. DIAGNOSTIC STUDIES LABORATORY: Sodium 135, potassium 3.5, chloride 96, CO2 of 33, BUN 17, creatinine 0.9, glucose 124. Initial cardiac enzymes: Troponin was 0.5. It has peaked at 1 and now is trending down at 0.85. BNP was 114. Initial lactic acid was 2.9. Hemoglobin 11.6, hematocrit 35.6, WBC 11.5, platelet count 108,000. Urinalysis was negative. IMAGING: Chest x-ray findings are suggestive of asbestos exposure. CARDIOVASCULAR: EKG shows atrial fibrillation, rate of 91 beats per minute, nonspecific ST-T wave abnormality. No acute ischemic change. QTc interval of 440 ms is noted. IMPRESSION 1. Non ST elevated myocardial infarction with a peak troponin of 1, trending down currently, now 0.85. 2. Chronic respiratory failure, hypoxic. The patient is a do not resuscitate. Family has denied intubation and is currently on high-flow oxygen. Was unable to be placed on CPAP therapy initially secondary to vomiting. 3. Altered mental status. 4. Possible pneumonia. 5. Sepsis with initial lactic acid of 2.9. 6. Known coronary artery disease with a history of CABG in 1993, status post cardiac catheterization on October 28, 2013. See results above. 7. Congestive heart failure, last known ejection fraction was 45% per cardiac cath. 8. Permanent atrial fibrillation, had been on anticoagulation with Eliquis at home. 9. Hypertension. 10. Hyperlipidemia. PLAN The patient has ruled in for non ST elevated myocardial infarction. His peak troponin is 1, which is now trending down at 0.85. He is currently chest pain free and there are no acute ischemic changes noted on his EKG. The patient had been on pressor support which is off. Will continue to follow serial enzymes as well as EKG. At this time, will attempt to restart low-dose beta alec with parameters to hold for systolic less than 100, heart rate less than 50. He will be continued on aspirin. I Unit #: [id number] #: [id number] Patient: MICHELLE REYNOLDS will start Lovenox 1 mg/kg subcutaneous b.i.d. and resume his Crestor dose that he was taking at home. Will check fasting lipid profile today and 2D echocardiogram to re-evaluate left ventricular systolic function. Will also get CBC, BMP, magnesium in the a.m. Will also check D-dimer STAT with orders to call if abnormal. If the patient's D-dimer is significantly elevated, will recommend a LTA chest with PE protocol as well as lower extremity venous Dopplers. I have discussed with the patient and the family and they want to continue conservative treatment only. The patient is a DNR for now. Will continue to hold diuretics and Eliquis. Will await results of D-dimer. Further recommendations pending Dr. Gonzalez's assessment. Dictated by... Katie Alfredo A.P.R.N. for Roscoe Latham/ramiro TD: 12/26/2016 09:36 JOB #: [id number] CONSULTATION REPORT Page 1 of 1 X Katie Alfredo APRN X CONSULTATION REPORT
[~2016-12-24 15:46] MED LIST changes: -ATIVAN2 MG PO; -ROXANOL W/DR20 MG/ML PO
[2016-12-24 16:24] LABS: BASOPHIL% 0.4 % (0-2.5); EOSINOPHIL% 0.4 % (0.0-7.0); HEMATOCRIT 42.7 % (38.0-50.0); HEMOGLOBIN 13.9 gm/dL (13.0-16.0); LYMPHOCYTE# 0.5 X10e3 (1.0-3.5); LYMPHOCYTE% 4.6 % (17.0-45.0); MEAN CORPUSCULAR HEMOGLOBIN 30.5 PG (28-34); MEAN CORPUSCULAR HGB CONC 32.4 g/dL (30-36); MEAN PLATELET VOLUME 6.3 FL (6.5-11.5); MONOCYTE# 0.3 X10e3 (0-1.0); MONOCYTE% 2.7 % (3.0-12.0); NEUTROPHIL# 9.6 X10e3 (1.5-7.1); NEUTROPHIL% 91.9 % (40-75); PLATELET COUNT 140 X10e3 (140-420); RED BLOOD COUNT 4.55 X10e (3.90-5.60); RED CELL DISTRIBUTION WIDTH 14.7 % (11.0-15.5); WHITE BLOOD COUNT 10.4 X10e3 (4.0-10.5)
[2016-12-24 16:26] LABS: DIFF IND NO
[2016-12-24 16:29] LABS: ARTERIAL BLD GAS O2 SATURATION 70.1 % (90.0-100.0); ARTERIAL BLOOD GAS CARBOXY HB 1.3 %sat (0.0-9.0); ARTERIAL BLOOD GAS HCO3 36.2 mmol/L; ARTERIAL BLOOD GAS MET HB 0.8 %sat (0.0-2.0); ARTERIAL BLOOD GAS pH 7.392 (7.350-7.450)
[2016-12-24 16:36] LABS: INR 1.1; PARTIAL THROMBOPLASTIN TIME 29.6 SECONDS (23.5-31.3)
[2016-12-24 16:39] LABS: ARTERIAL BLOOD GAS ART SITE LEFT BRACHIAL; ARTERIAL BLOOD GAS DELIVERY NASAL CANNULA; ARTERIAL BLOOD GAS PCO2 59.6 mmHg (35.0-45.0); ARTERIAL BLOOD GAS PO2 38.9 mmHg (80.0-100); ARTERIAL DRAW? YES
[2016-12-24 16:45] LABS: POC - TROPONIN <0.05 ng/mL (<=0.05)
[2016-12-24 16:47] LABS: ALBUMIN SERUM 4.3 g/dL (3.5-5.0); BILIRUBIN, DIRECT 0.2 mg/dL (0.0-0.2); BILIRUBIN,INDIRECT 0.8 mg/dL (0.0-0.9); BUN/CREATININE RATIO 18.88; CREATININE SERUM 0.9 mg/dL (0.6-1.4); GLOM FILT RATE Estimated 78.7 mL/min (>60); POTASSIUM 3.8 mmol/L (3.5-5.1)
[2016-12-24 17:15] LABS: URINE SOURCE CLEAN CATCH
[2016-12-24 17:23] LABS: URINE APPEARANCE CLEAR; URINE BILIRUBIN NEG (NEG); URINE BLOOD TRACE (NEG); URINE COLOR YELLOW; URINE GLUCOSE NEG (NEG); URINE KETONE NEG (NEG); URINE LEUKOCYTE ESTERASE NEG (NEG); URINE NITRATE NEG (NEG); URINE PROTEIN NEG (NEG); URINE SPECIFIC GRAVITY 1.008 (1.003-1.035); URINE UROBILINOGEN 0.2 MG/DL (NEG)
[2016-12-24 17:27] LABS: U HYALINE CASTS AUWI 0-2 /[LPF]; URINE BACTERIA AUWI NEG (NEGATIVE); URINE SQUAMOUS EPITHELIAL CELL NONE SEEN /[HPF]; UWBCS1 AUWI 0-2 (0-5)
[2016-12-24 17:28] LABS: CULTURE INDICATED? NO
[2016-12-24 20:27] LABS: FOLATE (FOLIC ACID) >23.2 ng/mL (>5.8)
[2016-12-24 21:16] LABS: ARTERIAL BLD GAS O2 SATURATION 98.2 % (90.0-100.0); ARTERIAL BLOOD GAS CARBOXY HB 0.8 %sat (0.0-9.0); ARTERIAL BLOOD GAS MET HB 0.7 %sat (0.0-2.0); ARTERIAL BLOOD GAS pH 7.299 (7.350-7.450)
[2016-12-24 21:20] LABS: ARTERIAL BLOOD GAS ALLEN TEST Y; ARTERIAL BLOOD GAS ART SITE RIGHT RADIAL; ARTERIAL BLOOD GAS DELIVERY HF O2; ARTERIAL BLOOD GAS PCO2 71.3 mmHg (35.0-45.0); ARTERIAL DRAW? YES
[2016-12-24 22:54] LABS: BASOPHIL# 0.1 X10e3 (0-0.3); BASOPHIL% 0.8 % (0-2.5); HEMATOCRIT 37.4 % (38.0-50.0); LYMPHOCYTE# 0.4 X10e3 (1.0-3.5); LYMPHOCYTE% 2.3 % (17.0-45.0); MEAN CELL VOLUME 95.1 FL (83-96); MEAN CORPUSCULAR HEMOGLOBIN 30.3 PG (28-34); MEAN CORPUSCULAR HGB CONC 31.9 g/dL (30-36); MEAN PLATELET VOLUME 6.8 FL (6.5-11.5); MONOCYTE# 3.3 X10e3 (0-1.0); MONOCYTE% 18.1 % (3.0-12.0); NEUTROPHIL# 14.4 X10e3 (1.5-7.1); NEUTROPHIL% 78.8 % (40-75); PLATELET COUNT 124 X10e3 (140-420); RED BLOOD COUNT 3.93 X10e (3.90-5.60); RED CELL DISTRIBUTION WIDTH 14.8 % (11.0-15.5)
[2016-12-24 22:55] LABS: HEMOGLOBIN 11.9 gm/dL (13.0-16.0); WHITE BLOOD COUNT 18.3 X10e3 (4.0-10.5)
[2016-12-24 22:56] LABS: DIFF IND YES
[2016-12-24 23:31] LABS: PLATELET ESTIMATE DECREASED (NORMAL)
[2016-12-24 23:32] LABS: RBC NORMAL YES; SMUDGE CELLS 3 /100
[2016-12-24 23:43] LABS: ARTERIAL BLD GAS O2 SATURATION 96.1 % (90.0-100.0); ARTERIAL BLOOD GAS CARBOXY HB 1.7 %sat (0.0-9.0); ARTERIAL BLOOD GAS HCO3 34.2 mmol/L; ARTERIAL BLOOD GAS MET HB 1.1 %sat (0.0-2.0); ARTERIAL BLOOD GAS pH 7.307 (7.350-7.450)
[2016-12-24 23:44] LABS: ARTERIAL BLOOD GAS ALLEN TEST NORMAL; ARTERIAL BLOOD GAS ART SITE LEFT RADIAL; ARTERIAL BLOOD GAS DELIVERY OPTI FLOW; ARTERIAL BLOOD GAS PCO2 68.4 mmHg (35.0-45.0); ARTERIAL DRAW? YES
[2016-12-25 01:51] LABS: %MB 7.9 % (0.0-4.0); MB 5.6 ng/ml
[2016-12-25 04:38] LABS: ARTERIAL BLD GAS O2 SATURATION 96.2 % (90.0-100.0); ARTERIAL BLOOD GAS CARBOXY HB 0.9 %sat (0.0-9.0); ARTERIAL BLOOD GAS HCO3 34.8 mmol/L; ARTERIAL BLOOD GAS MET HB 0.8 %sat (0.0-2.0); ARTERIAL BLOOD GAS PO2 96.2 mmHg (80.0-100); ARTERIAL BLOOD GAS pH 7.336 (7.350-7.450)
[2016-12-25 04:41] LABS: ARTERIAL BLOOD GAS ALLEN TEST NORMAL; ARTERIAL BLOOD GAS ART SITE LEFT RADIAL; ARTERIAL BLOOD GAS DELIVERY OPTIFLOW; ARTERIAL BLOOD GAS PCO2 65.2 mmHg (35.0-45.0); ARTERIAL DRAW? YES
[2016-12-25 07:08] LABS: BASOPHIL% 0.3 % (0-2.5); HEMATOCRIT 35.6 % (38.0-50.0); HEMOGLOBIN 11.6 gm/dL (13.0-16.0); LYMPHOCYTE# 0.4 X10e3 (1.0-3.5); LYMPHOCYTE% 3.1 % (17.0-45.0); MEAN CELL VOLUME 94.7 FL (83-96); MEAN CORPUSCULAR HEMOGLOBIN 30.8 PG (28-34); MEAN CORPUSCULAR HGB CONC 32.5 g/dL (30-36); MEAN PLATELET VOLUME 6.1 FL (6.5-11.5); MONOCYTE# 0.7 X10e3 (0-1.0); MONOCYTE% 6.3 % (3.0-12.0); NEUTROPHIL# 10.3 X10e3 (1.5-7.1); NEUTROPHIL% 90.3 % (40-75); PLATELET COUNT 108 X10e3 (140-420); RED BLOOD COUNT 3.76 X10e (3.90-5.60); WHITE BLOOD COUNT 11.5 X10e3 (4.0-10.5)
[2016-12-25 07:10] LABS: DIFF IND NO
[2016-12-25 07:20] LABS: INR 1.1; PROTHROMBIN TIME (PATIENT) 12.4 SECONDS (10.0-11.7)
[2016-12-25 07:55] LABS: ALBUMIN SERUM 3.1 g/dL (3.5-5.0); BILIRUBIN,TOTAL 0.7 mg/dL (0.2-2.0); BUN/CREATININE RATIO 18.88; CALCIUM SERUM 7.6 mg/dL (8.4-10.2); CREATININE SERUM 0.9 mg/dL (0.6-1.4); GLOM FILT RATE Estimated 78.7 mL/min (>60); POTASSIUM 3.5 mmol/L (3.5-5.1); PROTEIN TOTAL SERUM 6.2 g/dL (6.0-8.3)
[2016-12-25 08:59] LABS: %MB 6.4 % (0.0-4.0); MB 4.4 ng/ml
[2016-12-25 11:30] LABS: CHOLESTEROL 117 mg/dL (0-200); HDL CHOLESTEROL 36 mg/dL (29-75); LDL CHOLESTEROL 65 mg/dL (-130); LDL/HDL RATIO 2 RATIO (0-4); TRIGLYCERIDES 82 mg/dL (10-160)
[2016-12-26 05:26] LABS: BASOPHIL% 0.3 % (0-2.5); EOSINOPHIL% 0.1 % (0.0-7.0); HEMATOCRIT 33.1 % (38.0-50.0); HEMOGLOBIN 10.7 gm/dL (13.0-16.0); LYMPHOCYTE# 0.5 X10e3 (1.0-3.5); LYMPHOCYTE% 6.2 % (17.0-45.0); MEAN CELL VOLUME 96.3 FL (83-96); MEAN CORPUSCULAR HEMOGLOBIN 31.1 PG (28-34); MEAN CORPUSCULAR HGB CONC 32.3 g/dL (30-36); MONOCYTE# 0.9 X10e3 (0-1.0); MONOCYTE% 10.8 % (3.0-12.0); NEUTROPHIL% 82.6 % (40-75); RED BLOOD COUNT 3.44 X10e (3.90-5.60); RED CELL DISTRIBUTION WIDTH 14.9 % (11.0-15.5); WHITE BLOOD COUNT 8.5 X10e3 (4.0-10.5)
[2016-12-26 05:48] LABS: DIFF IND YES; PLATELET COUNT 81 X10e3 (140-420)
[2016-12-26 05:51] LABS: ANISOCYTOSIS SL; PLATELET ESTIMATE DECREASED (NORMAL)
[2016-12-26 06:11] LABS: CREATININE SERUM 1.2 mg/dL (0.6-1.4); GLOM FILT RATE Estimated 55.6 mL/min (>60); POTASSIUM 3.4 mmol/L (3.5-5.1)
[2016-12-26 11:30] LABS: URINE APPEARANCE CLEAR; URINE BILIRUBIN NEG (NEG); URINE COLOR YELLOW; URINE GLUCOSE NORM (NORM); URINE KETONE NEG (NEG); URINE LEUKOCYTE ESTERASE NEG (NEG); URINE NITRATE NEG (NEG); URINE PROTEIN 1+ (NEG); URINE SPECIFIC GRAVITY 1.015 (1.003-1.035); URINE UROBILINOGEN NORM (NORM)
[2016-12-26 11:41] LABS: URINE MUCUS PRESENT
[2016-12-26 11:43] LABS: UWBCS1 AUWI 0-2 (0-5)
[2016-12-26 11:46] LABS: URINE BLOOD 3+ (NEG)
[2016-12-27 04:06] LABS: BASOPHIL% 0.5 % (0-2.5); EOSINOPHIL# 0.1 X10e3 (0-0.7); EOSINOPHIL% 1.4 % (0.0-7.0); HEMATOCRIT 32.8 % (38.0-50.0); HEMOGLOBIN 10.5 gm/dL (13.0-16.0); LYMPHOCYTE# 0.5 X10e3 (1.0-3.5); LYMPHOCYTE% 7.7 % (17.0-45.0); MEAN CELL VOLUME 95.9 FL (83-96); MEAN CORPUSCULAR HEMOGLOBIN 30.7 PG (28-34); MEAN PLATELET VOLUME 7.3 FL (6.5-11.5); MONOCYTE# 0.9 X10e3 (0-1.0); MONOCYTE% 13.4 % (3.0-12.0); PLATELET COUNT 81 X10e3 (140-420); RED BLOOD COUNT 3.42 X10e (3.90-5.60); RED CELL DISTRIBUTION WIDTH 15.1 % (11.0-15.5); WHITE BLOOD COUNT 6.4 X10e3 (4.0-10.5)
[2016-12-27 04:07] LABS: DIFF IND NO
[2016-12-27 04:29] LABS: BUN/CREATININE RATIO 21.53; CALCIUM SERUM 8.3 mg/dL (8.4-10.2); CREATININE SERUM 1.3 mg/dL (0.6-1.4); GLOM FILT RATE Estimated 50.5 mL/min (>60); POTASSIUM 3.7 mmol/L (3.5-5.1)
[2016-12-28 05:25] LABS: BASOPHIL% 0.3 % (0-2.5); EOSINOPHIL# 0.1 X10e3 (0-0.7); EOSINOPHIL% 1.3 % (0.0-7.0); HEMATOCRIT 33.5 % (38.0-50.0); HEMOGLOBIN 10.7 gm/dL (13.0-16.0); LYMPHOCYTE# 0.4 X10e3 (1.0-3.5); LYMPHOCYTE% 5.9 % (17.0-45.0); MEAN CELL VOLUME 95.6 FL (83-96); MEAN CORPUSCULAR HEMOGLOBIN 30.6 PG (28-34); MEAN PLATELET VOLUME 7.8 FL (6.5-11.5); MONOCYTE# 0.8 X10e3 (0-1.0); MONOCYTE% 11.1 % (3.0-12.0); NEUTROPHIL# 5.9 X10e3 (1.5-7.1); NEUTROPHIL% 81.4 % (40-75); PLATELET COUNT 89 X10e3 (140-420); RED CELL DISTRIBUTION WIDTH 14.9 % (11.0-15.5); WHITE BLOOD COUNT 7.2 X10e3 (4.0-10.5)
[2016-12-28 05:30] LABS: DIFF IND NO
[2016-12-28 05:50] LABS: BUN/CREATININE RATIO 21.53; CALCIUM SERUM 8.3 mg/dL (8.4-10.2); CREATININE SERUM 1.3 mg/dL (0.6-1.4); GLOM FILT RATE Estimated 50.5 mL/min (>60); POTASSIUM 3.8 mmol/L (3.5-5.1)
[2016-12-28 21:15] LABS: ARTERIAL BLD GAS O2 SATURATION 91.8 % (90.0-100.0); ARTERIAL BLOOD GAS CARBOXY HB 1.4 %sat (0.0-9.0); ARTERIAL BLOOD GAS MET HB 0.9 %sat (0.0-2.0); ARTERIAL BLOOD GAS PCO2 48.2 mmHg (35.0-45.0); ARTERIAL BLOOD GAS pH 7.417 (7.350-7.450)
[2016-12-28 21:16] LABS: ARTERIAL BLOOD GAS ALLEN TEST NORMAL; ARTERIAL BLOOD GAS ART SITE RIGHT RADIAL; ARTERIAL BLOOD GAS DELIVERY NASAL CANNULA; ARTERIAL BLOOD GAS PO2 61.3 mmHg (80.0-100); ARTERIAL DRAW? YES
[2016-12-29 07:46] LABS: HEMATOCRIT 32.3 % (38.0-50.0); HEMOGLOBIN 10.6 gm/dL (13.0-16.0); MEAN CELL VOLUME 93.8 FL (83-96); MEAN CORPUSCULAR HEMOGLOBIN 30.7 PG (28-34); MEAN CORPUSCULAR HGB CONC 32.7 g/dL (30-36); MEAN PLATELET VOLUME 7.7 FL (6.5-11.5); RED BLOOD COUNT 3.44 X10e (3.90-5.60); RED CELL DISTRIBUTION WIDTH 14.3 % (11.0-15.5)
[2016-12-29 07:50] LABS: WHITE BLOOD COUNT 10.9 X10e3 (4.0-10.5)
[2016-12-29 08:05] LABS: BUN/CREATININE RATIO 25.71; CALCIUM SERUM 8.6 mg/dL (8.4-10.2); CREATININE SERUM 1.4 mg/dL (0.6-1.4); GLOM FILT RATE Estimated 46.2 mL/min (>60); POTASSIUM 3.1 mmol/L (3.5-5.1)
[2016-12-29] MEDS ORDERED: ROXANOL W/DR20 MG/ML PO (11:23)
[2016-12-29] MEDS ORDERED: ATIVAN2 MG PO (11:24)
[2016-12-29] MEDS ORDERED: ZOLOFT50 MG PO (17:07)
== END 2016-12-29 20:30 | DRG 871 ==
LOC: CED 15:46 → CEDOF 18:30 → CED 18:52 → CEDOF 21:38 → CICCU3 21:38 → C5B 12-27 16:06
PROVIDERS: Emergency Medicine; Family Medicine; Internal Medicine; Internal Medicine Pulmonary Disease; Nurse Practitioner
PROC: B24BZZZ Ultrasonography of Heart with Aorta (ICD-10-PCS; principal; 2016-12-25)
DX: A41.52 Sepsis due to Pseudomonas (principal); J18.9 Pneumonia, unspecified organism; J96.21 Acute and chronic respiratory failure with hypoxia; I21.4 Non-ST elevation (NSTEMI) myocardial infarction; R65.21 Severe sepsis with septic shock; I11.0 Hypertensive heart disease with heart failure; G92 Toxic encephalopathy; J96.12 Chronic respiratory failure with hypercapnia; I50.9 Heart failure, unspecified; I48.2 Chronic atrial fibrillation; Z79.01 Long term (current) use of anticoagulants; J44.9 Chronic obstructive pulmonary disease, unspecified; M81.0 Age-related osteoporosis without current pathological fracture; R10.9 Unspecified abdominal pain; Z51.5 Encounter for palliative care; G89.29 Other chronic pain; M54.9 Dorsalgia, unspecified; Z66 Do not resuscitate; E78.5 Hyperlipidemia, unspecified; M48.54XD Collapsed vertebra, not elsewhere classified, thoracic region, subsequent encounter for fracture with routine healing; I25.10 Atherosclerotic heart disease of native coronary artery without angina pectoris; Z95.1 Presence of aortocoronary bypass graft; N40.0 Benign prostatic hyperplasia without lower urinary tract symptoms; G31.84 Mild cognitive impairment of uncertain or unknown etiology; J61 Pneumoconiosis due to asbestos and other mineral fibers; Z90.49 Acquired absence of other specified parts of digestive tract; Z88.8 Allergy status to other drugs, medicaments and biological substances; Z88.1 Allergy status to other antibiotic agents; Z88.5 Allergy status to narcotic agent; I48.91 Unspecified atrial fibrillation
CPT/HCPCS: 36415; 36600; 70450; 71010; 71250; 80048; 80053; 80061; 80076; 81003; 82140; 82308; 82550; 82553; 82607; 82746; 82803; 83605; 83735; 83880; 84132; 84443; 84484; 85025; 85027; 85379; 85610; 85730; 87040; 87070; 87086; 87186; 87205; 93005; 93306; 93970; 94640; 94760; 96361; 96374; 97163; 97167; 97530; 99285; G8978-GP; G8979-GP; G8980-GP; G8987-GO; G8988-GO; J0456; J0692; J0696; J1630; J1650; J1940; J2060; J2250; J2270; J2405; J3370